=== PATIENT | male | born 1965 | race Caucasian/White ===

== ENCOUNTER → 2022-02-06 | Outpatient (CLI) | payer OTHER | LOC: COL.VAS 08:17 | DX: N18.5 Chronic kidney disease, stage 5 (principal); Z99.2 Dependence on renal dialysis ==

== ENCOUNTER 2022-03-12 10:07 | Day surgery (SDC) | payer OTHER ==
[~2022-03-12] VITALS: Ht 182.9 cm; Wt 101.3 kg
[2022-03-12] MEDS ORDERED: ZESTRIL2.5 MG PO (10:59)
[2022-03-12] MEDS ORDERED: VITAMIN D31000 I1 PO (10:59)
[2022-03-12] MEDS ORDERED: SODIUM BICARBO650 MG PO (11:00)
[2022-03-12] MEDS ORDERED: VELTASSA8.4 GM PO (11:00)
[2022-03-12] MEDS ORDERED: PRILOTC PO (11:01)
[2022-03-12] MEDS ORDERED: FISH OIL1000 MG PO (11:01)
[2022-03-12] MEDS ORDERED: NATURAL E400 IU PO (11:02)
[2022-03-12 11:29] VITALS: BP 150/98; PULSE 56; TEMP 97.9
[2022-03-12 11:49] LABS: CALCIUM 9.1 mg/dL (8.4-10.2); CREATININE, serum 6.61 mg/dL (0.72-1.25)
[2022-03-12 11:52] LABS: POTASSIUM 6.3 mmol/L (3.5-4.5)
--- NOTE | 2022-03-12 11:52 | NUR ---
Received notification from REEMA Silva of patient's potassium. KERVIN Bailey notified at 1155. Dr. Rivera notified at 1200. Dr. Rivera coming in to see patient.
--- NOTE | 2022-03-12 13:05 | NUR ---
Gave patient Valtessa per MDs orders. Patient then escorted to patient entrance. Plan for OR in AM with potassium recheck.
== END 2022-03-12 13:10 | disposition home or self-care (01) ==
LOC: SDCO 10:07
PROVIDERS: Registered Nurse
DX: I12.0 Hypertensive chronic kidney disease with stage 5 chronic kidney disease or end stage renal disease (principal); N18.4 Chronic kidney disease, stage 4 (severe); Z53.8 Procedure and treatment not carried out for other reasons
CPT/HCPCS: J7120

== ENCOUNTER 2022-03-13 10:14 | Day surgery (SDC) | payer OTHER ==
[~2022-03-13] VITALS: Ht 182.9 cm; Wt 99.2 kg
[~2022-03-13 10:14] MED LIST: FISH OIL1000 MG PO; NATURAL E400 IU PO; PRILOTC PO; SODIUM BICARBO650 MG PO; VELTASSA8.4 GM PO; VITAMIN D31000 I1 PO; ZESTRIL2.5 MG PO
[2022-03-13 10:51] VITALS: BP 123/74; PULSE 59; TEMP 97.4
[2022-03-13 10:56] LABS: CALCIUM 9.2 mg/dL (8.4-10.2); CREATININE, serum 7.21 mg/dL (0.72-1.25)
--- NOTE | 2022-03-13 11:18 | NUR ---
Dr. Rivera is called with critical labs of K 6.0 and Co2 14. He states he will be at the hospital shortly and that surgery continuing will be up to anesthesia provider's discretion. He also requests that Dr. Rousseau be contacted to see if he has any further orders.
--- NOTE | 2022-03-13 11:21 | NUR ---
Homero Chester CRNA is called at this time and critical labs of K and CO2 are reported to him. He states he will come and assess the patient/situation in person in 5 minutes.
--- NOTE | 2022-03-13 11:25 | NUR ---
Dr. Rousseau is called and updated on the patient's labs. He acknowledges the labs and states he will be in the hospital later this morning. He recommends 16.8 g of veltassa PO for the patient if he does not have surgery, but does not want to give it prior to OR for NPO status. He wants a call back after anesthesia decides whether the patient will have surgery today or not.
--- NOTE | 2022-03-13 11:39 | NUR ---
Homero Chester CRNA comes to the bedside, speaks with the patient, and reviews the labs. He states he will be in touch with further orders.
--- NOTE | 2022-03-13 11:47 | NUR ---
Homero Chester CRNA returns and notifies staff and the patient that his surgery will be cancelled today.
--- NOTE | 2022-03-13 12:00 | NUR ---
Dr. Rivera comes to the bedside and speaks with the patient.
--- NOTE | 2022-03-13 12:10 | NUR ---
Dr. Rivera calls Dr. Rousseau and confirms that the patient will receive 16.8 g veltassa prior to discharge. Dr. Rousseau states he will come to see the patient in the hospital.
--- NOTE | 2022-03-13 12:20 | NUR ---
1220 Dr. Rousseau comes and speaks with the patient at the bedside. He discusses changes to the patient's home medications, and that these changes have already been sent to the patient's preferred pharmacy. The patient verbalizes understanding of Dr. Rousseau's instructions. 1230 Patient is given 16.8 g of veltassa as ordered, prior to discharge home. He is discharged home at 1233 with the intent of rescheduling surgery when more medically stable.
== END 2022-03-13 12:33 | disposition home or self-care (01) ==
LOC: SDCO 10:14
PROVIDERS: Registered Nurse
DX: E87.5 Hyperkalemia (principal); Z53.8 Procedure and treatment not carried out for other reasons

== ENCOUNTER 2022-03-28 07:55 | Day surgery (SDC) | payer OTHER ==
[~2022-03-28] VITALS: Ht 182.9 cm; Wt 99.2 kg
[2022-03-28 08:53] LABS: CALCIUM 9.3 mg/dL (8.4-10.2); CREATININE, serum 7.7 mg/dL (0.72-1.25); POTASSIUM 4.9 mmol/L (3.5-4.5)
--- NOTE | 2022-03-28 08:55 | NUR ---
AFTER LABS REPORTED, DR. WAKEFIELD IN TO VISIT WITH PATIENT AND . 0900 IV FLUID CONNECTED TO SALINE LOCK LR INFUSING AT KEEP OPEN RATE
[2022-03-28 09:13] VITALS: BP 146/84; PULSE 52; TEMP 98.9
--- NOTE | 2022-03-28 09:50 | NUR ---
AMBULATES TO BATHROOM. VOIDS, THEN RETURNS TO ROOM 7. LYING ON CART, SIDE RAILS UP, CALL LIGHT AT SIDE. IN ROOM
--- NOTE | 2022-03-28 10:00 | NUR ---
[address] IN LENS CASE WITH STERILE SALINE AND GIVEN TO .
[2022-03-28 11:30] VITALS: BP 125/99; PULSE 49; TEMP 97.1
[2022-03-28] MEDS ORDERED: NORCO 325 MG-51 TAB PO (11:30)
[2022-03-28 11:45] VITALS: BP 123/77; PULSE 50
[2022-03-28 12:00] VITALS: BP 126/68; PULSE 46
[2022-03-28 12:15] VITALS: BP 140/83; PULSE 46
--- NOTE | 2022-03-28 12:42 | NUR ---
1130 ADMITTED TO ROOM 7 FROM OR PER CART. PATIENT DROWSY, AROUSES EASILY TO VERBAL STIMULI. RESP CLEAR SPONTANEOUS. MONITORS APPLIED. VITAL SIGNS OBTAINED. HR 40'S OKAY PER KERVIN MEEKS. INCISION LEFT LOWER FOREARM INTACT, NO EDEMA, REDNESS OR DRAINAGE OBSERVED. 1135 IN ROOM. 1145 MORE ALERT. CONVERSES APPROPRIATELY. DENIES PAIN. 1200 TOLERATES PO WATER WITHOUT NAUSEA. REFUSES SNACK AT THIS TIME. 1215 DISCHARGE INSTRUCTIONS REVIEWED WITH PATIENT AND . COPY OF INSTRUCTIONS AND EDUCATIONAL MATERIAL PROVIDED FOR PATIENT IN DISCHARGE FOLDER. 1236 SITS AT EDGE DRESSES SELF WITH AT SIDE. 1242 DISCHARGED PER WHEELCHAIR.
== END 2022-03-28 12:42 | disposition home or self-care (01) ==
LOC: SDCO 07:55
PROVIDERS: Registered Nurse
DX: I12.0 Hypertensive chronic kidney disease with stage 5 chronic kidney disease or end stage renal disease (principal); N18.6 End stage renal disease
CPT/HCPCS: J0690; J1644; J2704; J7120